=== PATIENT | female | born 1960 | race Hispanic/Latino ===

== ENCOUNTER 2017-11-18 15:03 | Outpatient (CLI) | payer BC | END 2017-11-18 15:04 | disposition home or self-care (01) | LOC: BICMAMMO 15:03 | PROVIDERS: ATTEND Family Medicine | DX: Z12.31 Encounter for screening mammogram for malignant neoplasm of breast (principal) | CPT/HCPCS: 77063; 77067 ==

== ENCOUNTER 2018-11-20 12:07 | Outpatient (CLI) | payer BC ==
--- NOTE | 2018-11-25 06:45 | MMO ---
Bilateral MAMMO Bilat Screen [facility]. CLINICAL HISTORY: Patient is 57 years old and is seen for screening. The patient has no family history of breast cancer. The patient has no personal history of cancer. VIEWS: The views performed were: bilateral craniocaudal with tomosynthesis and bilateral mediolateral oblique with tomosynthesis. FILMS COMPARED: The present examination has been compared to prior imaging studies performed at [facility] on 10/07/2014, 10/13/2015, 10/31/2016 and 11/18/2017. MAMMOGRAM FINDINGS: The breasts are heterogeneously dense, which could obscure a lesion on mammography. There is a new focal asymmetry seen in the middle upper-outer region of the right breast. In the left breast, there are no suspicious masses, calcifications or areas of architectural distortion. IMPRESSION: NEW FOCAL ASYMMETRY IN THE RIGHT BREAST REQUIRES ADDITIONAL EVALUATION. AN ULTRASOUND EXAM IS RECOMMENDED IF NEEDED. ADDITIONAL IMAGING. THE RESULTS OF THIS EXAM WERE SENT TO THE PATIENT. ACR BI-RADS Category 0 - Incomplete: Need additional imaging evaluation. [facility] will notify the patient of the need for additional imaging services. MAMMOGRAPHY NOTE: 1. A negative mammogram report should not delay a biopsy if a dominant of clinically suspicious mass is present. 2. Approximately 10% to 15% of breast cancers are not detected by mammography. 3. Adenosis and dense breasts may obscure an underlying neoplasm. Reported by: SONAL MCGUIRE MD Electonically Signed: [id number]
== END 2018-11-20 12:08 | disposition home or self-care (01) ==
LOC: BICMAMMO 12:07
PROVIDERS: ATTEND Family Medicine
DX: Z12.31 Encounter for screening mammogram for malignant neoplasm of breast (principal); N64.89 Other specified disorders of breast
CPT/HCPCS: 77063; 77067

== ENCOUNTER 2018-11-26 07:59 | Outpatient (CLI) | payer BC ==
--- NOTE | 2018-11-26 09:23 | ULT ---
LIMITED RIGHT BREAST ULTRASOUND: HISTORY: Focal area of asymmetry seen on prior diagnostic mammogram, 11/20/2018, was evaluated. FINDINGS: The right breast is evaluated from the 9 o'clock to the 12 o'clock position. There are several areas of scattered asymmetric echogenic breast tissue. No solid or cystic mass. IMPRESSION: BI-RADS category 2-Benign findings. Asymmetric breast tissue noted, but no solid or cystic mass. Co ntinued annual follow-up screening mammograms. POS: OFF
== END 2018-11-26 08:00 | disposition home or self-care (01) ==
LOC: BICULT 07:59
PROVIDERS: ATTEND Family Medicine
DX: R92.2 Inconclusive mammogram (principal); N64.89 Other specified disorders of breast

== ENCOUNTER 2019-04-17 08:43 | Outpatient (CLI) | payer BC ==
--- NOTE | 2019-04-17 09:44 | RAD ---
LEFT HIP 2 VIEWS: HISTORY: Left hip pain. FINDINGS: Joint space is well preserved. There are no signs of fracture. Some arthritic change in the SI join t region. IMPRESSION: Essentially unremarkable left hip. Mild arthritic changes of the sacroiliac joints incidentally seen . POS: [facility]
== END 2019-04-17 08:44 | disposition home or self-care (01) ==
LOC: BICRAD 08:43
PROVIDERS: ATTEND Internal Medicine Rheumatology
DX: M25.552 Pain in left hip (principal); M46.1 Sacroiliitis, not elsewhere classified

== ENCOUNTER 2020-02-18 15:01 | Outpatient (CLI) | payer BC ==
--- NOTE | 2020-02-18 15:38 | ULT ---
Exam: Thyroid ultrasound HISTORY: Evaluate for thyroid nodule. Patient had a thyroid scan is her [facility]. FINDINGS: Thyroid isthmus: 0.3 cm Right thyroid lobe: 4.8 x 1.7 x 1.7 cm Left thyroid lobe: 4.5 x 1.5 x 1.9 cm Thyroid nodules: No significant solid nodules or mixed solid/cystic nodules throughout the thyroid gl and. Incidental 0.2 cm cyst in the left thyroid lobe. IMPRESSION: 1. No solid or mixed solid/cystic nodules in the thyroid gland. TI-RADS 1, negative
== END 2020-02-18 15:02 | disposition home or self-care (01) ==
LOC: BICULT 15:01
PROVIDERS: ATTEND Internal Medicine Endocrinology, Diabetes & Metabolism
DX: E04.1 Nontoxic single thyroid nodule (principal)
CPT/HCPCS: 76536

== ENCOUNTER 2020-12-16 08:11 | Outpatient (CLI) | payer BC | END 2020-12-16 08:12 | disposition home or self-care (01) | LOC: BICMAMMO 08:11 | PROVIDERS: ATTEND Family Medicine | DX: Z12.31 Encounter for screening mammogram for malignant neoplasm of breast (principal) | CPT/HCPCS: 77063; 77067 ==

== ENCOUNTER 2021-03-10 09:43 | Outpatient (CLI) | payer BC | END 2021-03-10 09:44 | disposition home or self-care (01) | LOC: ULT 09:43 | PROVIDERS: ATTEND Family Medicine | DX: R10.84 Generalized abdominal pain (principal); D25.9 Leiomyoma of uterus, unspecified | CPT/HCPCS: 76700; 76856 ==

== ENCOUNTER 2021-03-27 08:44 | Outpatient (CLI) | payer BC | END 2021-03-27 08:45 | disposition home or self-care (01) | LOC: BICCT 08:44 → CT 08:45 | PROVIDERS: ATTEND Physician Assistant Medical | DX: K59.00 Constipation, unspecified (principal); R10.31 Right lower quadrant pain; R91.8 Other nonspecific abnormal finding of lung field; N28.1 Cyst of kidney, acquired; K76.89 Other specified diseases of liver | CPT/HCPCS: 74177 ==

== ENCOUNTER 2023-02-25 07:41 | Outpatient (CLI) | payer BC | END 2023-02-25 07:42 | disposition home or self-care (01) | LOC: BICULT 07:41 | PROVIDERS: ATTEND Family Medicine | DX: R10.84 Generalized abdominal pain (principal) | CPT/HCPCS: 76700 ==

== ENCOUNTER 2023-03-07 08:13 | Outpatient (CLI) | payer BC | END 2023-03-07 08:14 | disposition home or self-care (01) | LOC: BICMAMMO 08:13 | PROVIDERS: ATTEND Family Medicine | DX: Z12.31 Encounter for screening mammogram for malignant neoplasm of breast (principal) | CPT/HCPCS: 77063; 77067 ==